=== PATIENT | male | born 1995 | race Caucasian/White ===

== ENCOUNTER 2021-09-29 12:31 | Emergency (ER) | payer OTHER, SELFPAY ==
[~2021-09-29] VITALS: Ht 172.7 cm; Wt 72.6 kg
[2021-09-29 12:40] VITALS: BP_SYST 127
--- NOTE | 2021-09-29 12:40 | NUR ---
Patient to ER tent for evaluation. Assumed care.
--- NOTE | 2021-09-29 12:40 | NUR ---
Pt. came in with concerns of sore throat, chills but no fever, and cough X 3 days, states took home test which was negative but still concerned because of symptoms
--- NOTE | 2021-09-29 16:21 | NUR ---
ER at bedside examining patient in tent.
[2021-09-29 17:20] VITALS: BP_SYST 150
--- NOTE | 2021-09-29 17:20 | NUR ---
Patient given written and verbal discharge instructions and verbalizes understanding. ER Dr. Chase discussed with patient the results and treatment provided. Patient in stable condition. ID arm band removed. Patient educated on pain management and to follow up with PMD. Pain Scale 0. Opportunity for questions provided and answered.
== END 2021-09-29 17:20 | disposition home or self-care (01) ==
LOC: SED 12:31
DX: J06.9 Acute upper respiratory infection, unspecified (principal); Z20.822 Contact with and (suspected) exposure to COVID-19
CPT/HCPCS: 71045; 86710; 87426; 99284; U0003; 36415